=== PATIENT | female | born 1950 | race Caucasian/White ===

== ENCOUNTER 2019-12-24 13:52 | Inpatient (IN) | payer OTHER, MEDICAID ==
[~2019-12-24] VITALS: Ht 165.1 cm; Wt 64.9 kg
[2019-12-24 17:19] LABS: HEMATOCRIT. 39.6 % (36.0-48.0); HEMOGLOBIN. 13.5 g/dL (12.0-16.0); MEAN CORPUSCULAR HEMOGLOBIN 31.1 pg (28.0-32.0); MEAN CORPUSCULAR VOLUME 91.6 fL (81.0-99.0); MEAN PLATELET VOLUME 8.9 fl (7.4-10.4); PLATELET 239 x1000/uL (130-400); RED BLOOD CELL COUNT 4.33 mill/uL (4.2-5.4); RED CELL DISTRIBUTION WIDTH 13.1 % (11.6-14.6)
[2019-12-24 17:29] LABS: CHLORIDE 100 mEq/L (98-107)
[2019-12-24 17:44] LABS: PLATELET ESTIMATE NORMAL
[2019-12-24] MEDS ORDERED: ACETAMINOPHEN 325MG TABLET PO ONE (17:45)
[2019-12-24] MEDS ORDERED: PIPERACILLIN/TAZ 3.375G PREMIX 50 ML IV NR (19:06)
[2019-12-24] MEDS ORDERED: PIPERACILLIN/TAZOBACTAM 3.375GM/50ML PREMIX IV ONE (19:15)
[2019-12-24 22:00] VITALS: BP 114/95
[2019-12-24] MEDS ORDERED: MORPHINE SULFATE 2 MG/ML CPJ (NOT FOR IM USE) IV PRN (22:45)
[2019-12-24] MEDS ORDERED: DEXTROSE 50% WATER 50ML SYRINGE IV PRN (23:15)
[2019-12-25 01:43] VITALS: BP 104/72
[2019-12-25 05:43] VITALS: BP 99/48
[2019-12-25] MEDS ORDERED: PIPERACILLIN/TAZOBACTAM 3.375 G/VIAL IV SCH (06:00)
[2019-12-25 06:33] LABS: HEMATOCRIT 37.3 % (36.0-48.0); HEMOGLOBIN 12.6 g/dL (12.0-16.0); MEAN CORPUSCULAR HEMOGLOBIN 30.9 pg (28.0-32.0); MEAN CORPUSCULAR VOLUME 91.4 fL (81.0-99.0); PLATELET 223 x1000/uL (130-400); RED BLOOD CELL COUNT 4.09 mill/uL (4.2-5.4); RED CELL DISTRIBUTION WIDTH 13.5 % (11.6-14.6)
[2019-12-25] MEDS: PIPERACILLIN/TAZOBACTAM 3.375 G in DEXT 5% WATER 100 ML IV SCH ×3 (06:33→22:13)
[2019-12-25 06:51] LABS: CHLORIDE 102 mEq/L (98-107)
[2019-12-25 07:03] LABS: LDL CHOLESTEROL 73 mg/dL (5-100)
[2019-12-25 07:06] LABS: HDL CHOLESTEROL 40 mg/dL (40-59)
[2019-12-25] MEDS: BLOOD SUGAR DIAGNOSTIC STRIP TEST SCH ×4 (07:19→20:56)
[2019-12-25 08:00] VITALS: BP 113/60
[2019-12-25] MEDS: LISINOPRIL 20MG TABLET PO SCH (08:37)
[2019-12-25] MEDS: INSULIN LISPRO 100 UNITS/ML SUBCUT SCH ×5 (08:46→21:29)
[2019-12-25 12:00] VITALS: BP 124/64
[2019-12-25] MEDS ORDERED: HYDROCODONE/ACETAMINOPHEN 10/325MG TABLET PO PRN (13:45)
[2019-12-25] MEDS: INSULIN GLARGINE UD 100 UNITS/ML SYR SUBCUT SCH ×2 (14:59→22:06)
[2019-12-25 16:00] VITALS: BP 131/64
[2019-12-25 19:25] LABS: HEPATITIS B SURFACE ANTIGEN NEGATIVE
[2019-12-25 19:55] LABS: HEPATITIS A AB IGM NEGATIVE (NEGATIVE)
[2019-12-25 20:00] VITALS: BP 98/64
[2019-12-25] MEDS ORDERED: INSULIN GLARGINE UD 100 UNITS/ML SYR SUBCUT SCH (22:00)
[2019-12-25] MEDS: SODIUM CHLORIDE 0.9% 1,000 ML IV SCH (22:18)
[2019-12-26] VITALS: BP 101/50
[2019-12-26 04:00] VITALS: BP_SYST 105; BP_SYST 126; BP_DIAS 58; BP_DIAS 59
[2019-12-26] MEDS: PIPERACILLIN/TAZOBACTAM 3.375 G in DEXT 5% WATER 100 ML IV SCH (06:32)
[2019-12-26] MEDS: INSULIN LISPRO 100 UNITS/ML SUBCUT SCH ×7 (06:36→21:00)
[2019-12-26] MEDS: BLOOD SUGAR DIAGNOSTIC STRIP TEST SCH ×4 (07:13→21:00)
[2019-12-26 08:00] VITALS: BP 117/49
[2019-12-26] MEDS: SODIUM CHLORIDE 0.9% 1,000 ML IV SCH ×2 (08:00→18:12)
[2019-12-26] MEDS: LISINOPRIL 20MG TABLET PO SCH (08:51)
[2019-12-26] MEDS: INSULIN GLARGINE UD 100 UNITS/ML SYR SUBCUT SCH ×2 (10:00→22:00)
[2019-12-26 12:00] VITALS: BP 81/48
[2019-12-26] MEDS: AMPICILLIN SOD/SULBACTAM NA 3 G in SODIUM CHLORIDE 0.9% 100 ML IV SCH ×2 (13:15→17:25)
[2019-12-26] MEDS ORDERED: ASPI-1158 PO (17:07)
[2019-12-26] MEDS ORDERED: EMPA10TA MT (17:07)
[2019-12-26] MEDS ORDERED: BENA20TA10 MT (17:07)
[2019-12-26] MEDS ORDERED: LEVO75TA7 MT (17:07)
[2019-12-26 20:00] VITALS: BP 145/83
[2019-12-27] VITALS: BP 123/55
[2019-12-27] MEDS: AMPICILLIN SOD/SULBACTAM NA 3 G in SODIUM CHLORIDE 0.9% 100 ML IV SCH ×3 (00:13→11:46)
[2019-12-27 04:00] VITALS: BP 130/69
[2019-12-27] MEDS: SODIUM CHLORIDE 0.9% 1,000 ML IV SCH (04:01)
[2019-12-27] MEDS: BLOOD SUGAR DIAGNOSTIC STRIP TEST SCH ×2 (06:25→11:46)
[2019-12-27] MEDS: INSULIN LISPRO 100 UNITS/ML SUBCUT SCH ×4 (06:34→12:08)
[2019-12-27 08:00] VITALS: BP 129/51
[2019-12-27] MEDS ORDERED: ACETAMINOPHEN 325MG TABLET PO PRN (09:45)
[2019-12-27] MEDS: LISINOPRIL 20MG TABLET PO SCH (10:07)
[2019-12-27] MEDS: INSULIN GLARGINE UD 100 UNITS/ML SYR SUBCUT SCH (10:14)
[2019-12-27 12:22] VITALS: BP 136/58
[2019-12-27 12:23] VITALS: BP 136/58
== END 2019-12-27 14:41 | disposition home or self-care (01) | DRG 872 ==
LOC: ER 13:52 → EDBEDREQTM 19:10 → EDBEDREQ 19:10 → EDBEDREQSVC 19:10 → 6EST 19:56 → EDBEDREQ 19:58 → EDBEDREQTM 19:58 → ENRESERV 20:14
PROVIDERS: ADMIT Internal Medicine; ATTEND Internal Medicine
DX: A41.9 Sepsis, unspecified organism (principal); E87.2 Acidosis; E87.1 Hypo-osmolality and hyponatremia; E44.1 Mild protein-calorie malnutrition; E11.9 Type 2 diabetes mellitus without complications; E78.00 Pure hypercholesterolemia, unspecified; E78.5 Hyperlipidemia, unspecified; K11.5 Sialolithiasis; K11.1 Hypertrophy of salivary gland; K11.20 Sialoadenitis, unspecified; R74.0 Nonspecific elevation of levels of transaminase and lactic acid dehydrogenase [LDH]; R13.10 Dysphagia, unspecified; Z68.23 Body mass index [BMI] 23.0-23.9, adult
CPT/HCPCS: 36415; 70487; 71045; 80048; 80053; 80061; 82962; 83036; 83605; 84145; 85025; 85027; 86705; 86709; 86803; 86850; 86900; 87340; 93005; 99285; J0295; J1815; J2270; J2543; J7030; J7050; J7060